=== PATIENT | female | born 1950 | race Caucasian/White ===

== ENCOUNTER 2017-02-26 13:23 | Emergency (ER) | payer MEDICARE, OTHER ==
[2017-02-26 13:39] VITALS: BP 115/53
--- NOTE | 2017-02-26 14:04 | UC ---
[facility] HPI - HPI Summary HPI Summary: Pt presents with c/o upper molar pain, that radiates to right maxillary sinus X 1 week. Pt is visiting from [place] and was seen by dentist 2-3 weeks ago and was told that one of her upper right molars has the "root of the tooth growing into her sinus cavity". Pt states the pain has worsened over the last 3 -4 days and she took 1 tramadol tablet PO as prescribed by her dentist. Pt reports pain has improved. - History of Current Complaint Stated Complaint: ORAL/SINUS COMPLAINT Time Seen by Provider: 02/26/17 13:31 Hx Obtained From: Patient ?: No Onset/Duration: Gradual Onset, Lasting Days, Still Present, Worse Since - onset Severity: Mild Aggravating: Chewing Alleviating: Other (see comments) - prescribed tramadol Related History: Swelling - right upper gum - Allergies/Home Medications Allergies/Adverse Reactions: Allergies Allergy/AdvReac Type Severity Reaction Status Date / Time Penicillins Allergy Unknown Verified 02/26/17 13:31 Reaction Details Home Medications: Home Medications Aspirin [Aspirin 81 MG TAB] 81 mg PO DAILY 02/26/17 [History Confirmed 02/26/17] Biotin 5,000 mcg PO DAILY 02/26/17 [History Confirmed 02/26/17] Calcium 600 mg PO DAILY 02/26/17 [History Confirmed 02/26/17] Chlorpheniramine Maleate TAB* [Chlortrimeton TAB*] 4 mg PO DAILY 02/26/17 [ History Confirmed 02/26/17] Cholecalciferol [Vitamin D3] 1,000 unit PO DAILY 02/26/17 [History Confirmed ] Cinnamon [Cinnamon Extract] 500 mg PO DAILY 02/26/17 [History Confirmed 02/26/17 ] Citalopram TAB* [Celexa TAB*] 20 mg PO DAILY 02/26/17 [History Confirmed ] Coenzyme [id number] [Co Q-10 Plus 100-20 mg] 1 cap PO DAILY 02/26/17 [ History Confirmed 02/26/17] Cyanocobalamin TAB* [Vitamin B12 TAB*] 1,000 mcg PO DAILY 02/26/17 [History Confirmed 02/26/17] Estradiol (NF) 1 mg PO DAILY 02/26/17 [History Confirmed 02/26/17] Ezetimibe TAB* [Zetia TAB*] 10 mg PO DAILY 02/26/17 [History Confirmed 02/26/17] [id number]-[id number] [Glucosamine & Cho... 3938-4377-922 mg-mg-Unit] 1 tab PO DAILY 02/26/17 [History Confirmed 02/26/17] Iron-Vitamin C-Vitamin B12-Fol [Icar-C Plus 100-250-0.025-1 mg] 1 tab PO DAILY 02/26/17 [History Confirmed 02/26/17] Lactobacillus [Probiotic] 1 cap PO DAILY 02/26/17 [History Confirmed 02/26/17] Multiple Vitamin [Multivitamins] 1 cap PO DAILY 02/26/17 [History Confirmed ] Niacin ER TAB* [Niaspan ER TAB*] 500 mg PO DAILY 02/26/17 [History Confirmed ] [place]-3 Fatty Acids [Fish Oil] 1,000 mg PO 02/26/17 [History] Ranitidine TAB (NF) [Zantac TAB (NF)] 300 mg PO DAILY 02/26/17 [History Confirmed 02/26/17] Simvastatin TAB(NF) [Zocor 20 MG (NF)] 40 mg PO DAILY 02/26/17 [History Confirmed 02/26/17] l-Methylfolate W/ Vitamin B6-V [Foltanx 3-35-2 mg] 1 tab PO DAILY 02/26/17 [ History Confirmed 02/26/17] PMH/Surg Hx/FS Hx/Imm Hx Previously Healthy: Yes - Surgical History Surgical History: Yes Surgery Procedure, Year, and Place: hysterectomy - Family History Known Family History: Positive: Cardiac Disease - Social History Occupation: Retired Lives: With Family Alcohol Use: Occasionally Substance Use Type: None Smoking Status (MU): Former Smoker Have You Smoked in the Last Year: No When Did the Patient Quit Smoking/Using Tobacco: 1979 Review of Systems Constitutional: Negative Skin: Negative Eyes: Negative ENT: Dental Pain - right upper molars, Sinus Pain/Tenderness - right maxillary Respiratory: Negative Cardiovascular: Negative Gastrointestinal: Negative Genitourinary: Negative Motor: Negative Neurovascular: Negative Musculoskeletal: Negative Neurological: Headache Psychological: Negative All Other Systems Reviewed And Are Negative: Yes Physical Exam Triage Information Reviewed: Yes Appearance: Well-Appearing Vital Signs: Initial Vital Signs Temp 98.6 F 02/26/17 13:33 Pulse 66 02/26/17 13:33 Resp 18 02/26/17 13:33 BP 115/53 02/26/17 13:33 Pulse Ox 98 02/26/17 13:33 Vital Signs Reviewed: Yes Eye Exam: Normal, Other ENT Exam: Other ENT: Positive: Other: - cerumen in bilateral ear canals swelling to right upper gum Dental Exam: Other Dental: Positive: Percussion Tenderness @ - right upper molars Neck exam: Normal Respiratory Exam: Normal Cardiovascular Exam: Normal Musculoskeletal Exam: Normal Neurological Exam: Normal Psychological Exam: Normal Skin Exam: Normal Dental Complaint Course/Dx - Differential Dx/Diagnosis Differential Diagnosis/Dx: Dental Abscess Provider Diagnoses: dental abscess Discharge - Discharge Plan Condition: Stable Disposition: HOME Prescriptions: Clindamycin Cap(NF) [Clindamycin Cap 300 mg Cap(NF)] 300 mg PO TID #21 cap Ibuprofen TAB* [Motrin TAB* 600 MG] 600 mg PO Q6H PRN #40 tab PRN Reason: Pain predniSONE TAB* [Deltasone TAB*] 20 mg PO DAILY #4 tab Patient Education Materials: Dental Abscess (ED) Referrals: [facility] [place] [facility]ERR[facility] [Outside] - If Needed Additional Instructions: Please follow up with your PCP upon returning to your home in [place]. If your condition worsens please return to clinic or use the the referral number we have provided to establish care locally.
== END 2017-02-26 14:35 | disposition home or self-care (01) ==
LOC: UCCORT 13:23
DX: K04.7 Periapical abscess without sinus (principal); H61.23 Impacted cerumen, bilateral; Z90.710 Acquired absence of both cervix and uterus; Z79.82 Long term (current) use of aspirin; Z88.0 Allergy status to penicillin; Z87.891 Personal history of nicotine dependence
CPT/HCPCS: 99202; G0463

== ENCOUNTER 2017-04-06 12:34 | Emergency (ER) | payer MEDICARE, OTHER ==
[2017-04-06 13:25] VITALS: BP 139/59
--- NOTE | 2017-04-06 13:43 | UC ---
Dental HPI - HPI Summary HPI Summary: She has a known diagnosed right maxillary dental root growing into her sinus. today she developed some pain and then some drainage around the tooth. no fever or chills. - History of Current Complaint Chief Complaint: UCDentalProblem Stated Complaint: ORAL COMPLAINT Time Seen by Provider: 04/06/17 13:27 Hx Obtained From: Patient, Family/Quality Liaison Onset/Duration: Gradual Onset, Lasting Hours Severity: Moderate Aggravating Factor(s): Chewing Alleviating Factor(s): Other (see comments) - motrin. Related History: Discharge, Swelling - Allergies/Home Medications Allergies/Adverse Reactions: Allergies Allergy/AdvReac Type Severity Reaction Status Date / Time Penicillins Allergy Unknown Verified 04/06/17 13:25 Reaction Details PMH/Surg Hx/FS Hx/Imm Hx Previously Healthy: No - Surgical History Surgical History: Yes Surgery Procedure, Year, and Place: hysterectomy - Family History Known Family History: Positive: Cardiac Disease - Social History Occupation: Retired Alcohol Use: Occasionally Substance Use Type: None Smoking Status (MU): Former Smoker Have You Smoked in the Last Year: No When Did the Patient Quit Smoking/Using Tobacco: 1979 Review of Systems ENT: Dental Pain All Other Systems Reviewed And Are Negative: Yes Physical Exam Triage Information Reviewed: Yes Appearance: Well-Appearing, No Pain Distress, Well-Nourished Vital Signs: Initial Vital Signs Temp 99.1 F 04/06/17 13:14 Pulse 73 04/06/17 13:14 Resp 16 04/06/17 13:14 BP 139/59 04/06/17 13:14 Pulse Ox 96 04/06/17 13:14 Vital Signs Reviewed: Yes Eye Exam: Normal Eyes: Positive: Conjunctiva Clear. Negative: Conjunctiva Inflamed ENT: Negative: Tonsillar swelling, Tonsillar exudate, Trismus, Muffled/hoarse voice Dental: Positive: Abscess @, Other: - right mid upper molar gum swelling and scant drainage of pus. no facial swelling or maxillary tenderness. Neck exam: Normal Neck: Positive: Supple, Nontender, No Lymphadenopathy Respiratory Exam: Normal Respiratory: Positive: Normal breath sounds, No respiratory distress, No accessory muscle use. Negative: Respiratory distress Cardiovascular Exam: Normal Cardiovascular: Positive: RRR, No Murmur, Pulses Normal, Brisk Capillary Refill Abdomen Description: Positive: Nontender, No Organomegaly, Soft Musculoskeletal Exam: Normal Musculoskeletal: Positive: Strength Intact, ROM Intact, No Edema Neurological Exam: Normal Neurological: Positive: Alert, Muscle Tone Normal. Negative: Fatigued Psychological Exam: Normal Psychological: Positive: Normal Response To Family Skin Exam: Normal Skin: Positive: rashes Dental Complaint Course/Dx - Differential Dx/Diagnosis Differential Diagnosis/Dx: Dental Abscess, Mandibular Trauma, Maxillary Trauma, Odontogenic Pain, Peritonsillar Abcess, Pharyngitis, Post Extraction Pain, TMJ Syndrome Provider Diagnoses: dental abcess. Discharge - Discharge Plan Condition: Good Disposition: HOME Prescriptions: Clindamycin Cap(NF) [Clindamycin Cap 300 mg Cap(NF)] 300 mg PO TID #30 cap Patient Education Materials: Dental Abscess (ED) Referrals: Non Staff,Doctor [Primary Care Provider] - Additional Instructions: follow up with your dentist as already planned.
== END 2017-04-06 13:51 | disposition home or self-care (01) ==
LOC: UCCORT 12:34
DX: K04.7 Periapical abscess without sinus (principal); Z88.0 Allergy status to penicillin; Z87.891 Personal history of nicotine dependence
CPT/HCPCS: 99212; G0463